=== PATIENT | male | born 1995 | race Caucasian/White ===

== ENCOUNTER → 2022-01-12 | Outpatient (CLI) | payer OTHER | LOC: KOH-I 08:15 | DX: S83.512A Sprain of anterior cruciate ligament of left knee, initial encounter (principal); M23.52 Chronic instability of knee, left knee; S82.142A Displaced bicondylar fracture of left tibia, initial encounter for closed fracture; S83.412A Sprain of medial collateral ligament of left knee, initial encounter; V86.96XA Unspecified occupant of dirt bike or motor/cross bike injured in nontraffic accident, initial encounter | CPT/HCPCS: 73721 ==